=== PATIENT | male | born 1975 | race Caucasian/White ===

== ENCOUNTER → 2019-01-27 | Outpatient (CLI) | payer OTHER ==
--- NOTE | 2019-01-28 09:06 | RAD ---
EXAM DESCRIPTION: Elbow x-ray,Left 2 Views CLINICAL HISTORY: ELBOW PAIN COMPARISON: None Available. TECHNIQUE: AP, Lateral FINDINGS: Two-view left elbow shows no fracture or dislocation. There is no bone lesion. There are no significant arthritic changes. There is no radiopaque foreign body. IMPRESSION: Negative for fracture. Electronically signed by: Shekhar Stanton MD 01/28/2019 9:03 AM CDT
== END ==
LOC: RAD 08:52
PROVIDERS: ATTEND Chiropractor
DX: S59.902A Unspecified injury of left elbow, initial encounter (principal)